=== PATIENT | female | born 1965 | race Caucasian/White ===

== ENCOUNTER → 2016-08-13 | Outpatient (CLI) | payer BC ==
[~2016-08-13] MED LIST: AMBIEN10 MG PO; BENTYL20 MG PO; HYDROCODON-ACE1 EAC9 PO; LYRICA PO; NEURONTIN PO; PHENERGAN12.5 MG PO; PHENERGAN25 M1 PO; PROTONIX PO; ZOFRAN ODT4 MG/UDTAB SL
--- NOTE | ~2016-08-13 | CT4 ---
[facility] A Service of [facility] RADIOLOGY TEXT RESULTS PATIENT: ALVA TAN LOCATION: [facility] : 61 UNIT #: [id number] AGE: [address]: Matilde Camarena APRN SEX: F ORDER DR: [id number] [facility] [address] [place], [place] [address] [id number] O MR#: [id number] Acc #: [id number] NAME: ALVA TAN : 1965 SEX: F STUDY DATE/TIME: 08/13/2016 16:38 UNIT: [facility] ROOM: STUDY DESCRIPTION: CT Abd and Pelv Wo Cont Attending Physician: Matilde Camarena A.P.R.N. Referring Physician: Matilde Camarena A.P.R.N. Ordering Physician: Matilde Camarena A.P.R.N. Primary Care Physician: Matilde Camarena A.P.R.N. MEDICAL IMAGING REPORT This report is preliminary unless electronic signature is present EXAM CT abdomen and pelvis without IV contrast COMPARISON STUDIES 07/22/2015 HISTORY Right flank and right lower quadrant abdominal pain, hematuria and dysuria for [address] exam was performed with one or more of the following radiation dose reduction techniques: automatic exposure control, adjustment of mA and/or kV according to patient size, and iterative reconstruction. Axial CT imaging of the abdomen and pelvis was performed without IV contrast. Coronal and sagittal reformats were constructed. Lack of IV contrast limits evaluation of adenopathy, vasculature and viscera. FINDINGS Tiny fat-containing umbilical hernia without evidence of inflammatory change. Multilevel mild degenerative facet disease in the lumbar spine. No acute fractures or suspicious osseous lesions. Mild asymmetric degenerative change at the posterior left sacroiliac joint. Calcified granulomas in the left lower lobe of the lung, liver, spleen and the sendy hepatis. Simple cyst in the caudate lobe measuring up to 1.1 cm. Calcified granuloma in the right lower lobe of the lung. In the posterior segment of the right hepatic lobe, there is a 1 cm fat-containing lesion which is stable from July 22, 2015, possibly representing focal fat over a very small adenoma. Separate tiny hypoattenuating lesion in the posterior segment of the right hepatic lobe STS. [facility] A Service of [facility] RADIOLOGY TEXT RESULTS PATIENT: ALVA TAN LOCATION: [facility] : 61 UNIT #: [id number] AGE: [address]: Matilde Camarena APRN SEX: F ORDER DR: measures up to 5 mm, possibly minimal increased in size from 2016. This is too small to characterize, has density suggesting focal fat or possibly a cyst. Unenhanced pancreas, adrenal glands and right kidney within normal limits. There is a non-obstructive punctate calculus inferior pole of the left kidney. In the superior pole of the left kidney, there is a 1.1 cm lesion which has average Hounsfield units of -2, either representing an angiomyolipoma or possibly a benign cyst. There is no evidence of associated hemorrhage. No hydronephrosis or hydroureter. No ureteral calculi. Urinary bladder is unremarkable. CT appearance of the uterus is within normal limits. No suspicious adnexal masses. No evidence of bowel obstruction. There has been interval appendectomy. No free fluid or pneumoperitoneum. Normal caliber of the abdominal aorta. No adenopathy. IMPRESSION 1. No acute findings in the abdomen, pelvis or imaged lower chest. 2. There is a punctate calculus inferior pole of the left kidney without evidence of ureteral calculus or obstructive uropathy. 3. Benign cyst in the caudate lobe of the liver as well as what is favored represent a stable focal area of fat or possibly a benign hepatic adenoma in the posterior segment right hepatic lobe. Separately in the right hepatic lobe, there is a 5 mm hypoattenuating lesion which is too small to characterize and has density suggesting focal fat or possibly a cyst. Imaging followup recommend as clinically indicated. 4. Benign cyst versus angiomyolipoma of the left kidney. 5. Prior appendectomy. Dictated by... Bhupinder Cole M.D. THIS IS AN ELECTRONICALLY VERIFIED REPORT Bhupinder Cole M.D. at 08/16/2016 3:04 PM BLM/pcl TD: 08/13/2016 21:34 JOB #: [id number] MEDICAL IMAGING REPORT Page 1 of 1 COPY
== END | disposition home or self-care (01) ==
LOC: CCAT 15:52
DX: R31.9 Hematuria, unspecified (principal); R10.9 Unspecified abdominal pain; N20.0 Calculus of kidney; K76.89 Other specified diseases of liver; K76.9 Liver disease, unspecified; Z90.49 Acquired absence of other specified parts of digestive tract
CPT/HCPCS: 74176